=== PATIENT | female | born 1995 | race Caucasian/White ===

== ENCOUNTER 2019-12-12 06:47 | Outpatient (CLI) | payer OTHER, SELFPAY ==
[2019-12-12 07:54] LABS: Basophils Absolute Auto 0.1 K/mm3 (0.0-0.1); Basophils Percent Auto 1.3 % (0.2-1.2); Eosinophils Absolute Auto 0.2 K/mm3 (0-0.3); Eosinophils Percent Auto 3.9 % (0-4.4); Hemoglobin 14.7 g/dL (12.0-15.0); Immature Granulocyte Absolute 0.07 K/mm3 (0.00-0.031); Immature Granulocyte Percent A 1.1 % (0-0.5); Lymphocytes Percent Auto 32.5 % (18.3-44.2); Mean Corpuscular HGB Conc 34.2 g/dl (32-36); Mean Corpuscular Hemoglobin 29.5 pg (26-34); Mean Corpuscular Volume 86.2 fl (80-100); Mean Platelet Volume 9.3 fl (7.4-10.4); Monocytes Absolute Auto 0.6 K/mm3 (0.1-0.6); Monocytes Percent Auto 9.9 % (2.6-8.5); Neutrophils Absolute Auto 3.2 K/mm3 (1.3-6.7); Neutrophils Percent Auto 51.3 % (45.5-73.1); Platelet Count Result 276 k/mm3 (150-375); Red Blood Count 4.99 M/mm3 (4.2-5.4); Red Cell Distribution Width 12.5 % (11.5-14.5); White Blood Count 6.2 K/mm3 (4.5-10.0)
[2019-12-12 08:13] LABS: Alanine Aminotransferase 14 U/L (4-35); Albumin Level 4.5 g/dL (3.5-5.1); Alkaline Phosphatase 79 U/L (38-126); Aspartate Amino Transferase 20 U/L (14-36); Bilirubin,Total 0.5 mg/dL (0.2-1.3); Blood Urea Nitrogen 10 mg/dL (7-17); Calcium 9.3 mg/dL (8.4-10.2); Carbon Dioxide 30 mmol/L (22-30); Chloride 102 mmol/L (98-107); Cholesterol 221 mg/dL (0-200); Estimated Glomerular Filt Rate > 60; Glucose 91 mg/dL (65-105); HDL Direct 34 mg/dL; Potassium 4.3 mmol/L (3.4-5.0); Sodium 136 mmol/L (137-145); Triglycerides 139 mg/dL (<150)
[2019-12-12 08:24] LABS: LDL Cholesterol Direct 150 mg/dL
[2019-12-12 08:42] LABS: Vitamin D 25 Hydroxy 26.6 ng/mL
[2019-12-12 08:55] LABS: Thyroid Stimulating Hormone Reflex 0.495 uIU/mL (0.465-4.68)
[2019-12-12 09:02] LABS: INR 0.9
[2019-12-12 09:03] LABS: Partial Thromboplastin Time 33.1 SECONDS (22.3-36.8)
[2019-12-12 11:26] LABS: Folic Acid 8.7 ng/mL (2.76->20)
[2019-12-17 21:18] LABS: Hexagonal Phase Confirm Weak Positive (Negative)
[2019-12-17 21:27] LABS: Antithrombin III Activity 127 % activity (80-120)
[2019-12-17 21:51] LABS: Lupus dRVVT 1:1 Mix Interpreta Not Indicated; Lupus dRVVT Screen 29 sec (<=45); PTT-LA Screen 43 sec (<=40)
[2019-12-18 23:51] LABS: Estrogen 232.4 pg/mL
== END 2019-12-12 06:48 | disposition home or self-care (01) ==
PROVIDERS: Visit Provider Obstetrics & Gynecology
DX: Z01.419 Encounter for gynecological examination (general) (routine) without abnormal findings (principal); N93.9 Abnormal uterine and vaginal bleeding, unspecified; I26.99 Other pulmonary embolism without acute cor pulmonale
CPT/HCPCS: 36415; 80053; 80061; 81241; 81291; 82306; 82607; 82672; 82746; 83001; 83036; 84146; 84311; 84443; 85025; 85300; 85303; 85306; 85610; 85613; 85730